=== PATIENT | male | born 1995 | race Caucasian/White ===

== ENCOUNTER 2024-06-02 23:53 | Emergency (ER) | payer BC, SELFPAY ==
[2024-06-03 00:37] VITALS: BP 110/54; PULSE 104; RESP 16; TEMP 37.4; O2SAT 97; BMI 40.4
--- NOTE | 2024-06-03 00:52 | ED_ITS ---
HPI - General Adult General Chief complaint: Nausea/Vomiting Stated complaint: Vomiting, fainting, diarrhea Time Seen by Provider: 06/03/24 00:35 Source: patient and family Mode of arrival: ambulatory Limitations: no limitations History of Present Illness HPI narrative: 28-year-old male presents the emergency department for evaluation of fainting after a bout of vomiting and diarrhea. Lasted only few seconds, was fully alert within 30 seconds. No seizure-like activity. Has been drinking fluids normally since. This was approximately 2 hours prior to arrival which is about 3 hours prior to examination. No chest pain, no shortness of breath, no neurological changes, no seizures. No recreational pharmaceuticals or intoxications that would have contributed. Daughter had stomach flu like symptoms a couple of days prior to patient. Family mainly concerned about the fainting spell. Patient feeling mildly lightheaded but otherwise well. No severe abdominal pain, no other systemic symptoms. No prior syncope, cardiac complication or arrhythmia history. No family history of premature coronary artery disease or arrhythmia. No long-term medications, no prior GI surgeries. No allergies. Nonsmoker, no drugs. ROS notable for the GI, generalized and cardiovascular symptoms as above, otherwise denies times 12 systems. Related Data Home Medications ?Medication ?Instructions ?Recorded ?Confirmed No Known Home Medications 06/03/24 06/03/24 Allergies Allergy/AdvReac Type Severity Reaction Status Date / Time No Known Drug Allergies Allergy Verified 06/03/24 00:39 Exam Const: Vital Signs, click to edit/add: Vital Signs - 24 hr 06/03/24 00:37 Temperature 99.3 F Pulse Rate [Pulse Oximeter] 104 H Respiratory Rate 16 Blood Pressure [Le ft Upper Arm] 110/54 L Pulse Oximetry 97 Oxygen Delivery Me thod Room Air Documenting provider has reviewed patient's vital signs: yes Common normals: no apparent distress and alert General appearance: cooperative, comfortable and well kempt HENMT: Common normals: normocephalic Head and scalp: normocephalic Mouth: oral and palatal mucosa normal Throat: posterior oropharynx normal Eye: Common normals: conjunctivae normal General eye: normal appearance of both eyes Conjunctiva: conjunctiva(e) normal Neck & C-Spine: Common normals: full ROM and no lymphadenopathy Resp: Common normals: normal respiratory effort, no use of accessory muscles and clear to auscultation bilaterally Effort & inspection: able to speak in complete sentences Auscultation: clear to auscultation bilaterally Cardio: Common normals: regular rate, regular rhythm, S1 normal heart sound, S2 normal heart sound and no murmurs Rate: regular rate Rhythm: regular rhythm Heart sounds: S1 normal and S2 normal GI: Common normals: Normal to inspection, nondistended, normoactive bowel sounds present, soft to palpation, non-tender, no hepatosplenomegaly and no mas ses Palpation: soft and no hepatosplenomegaly Extremity: Common normals: normal to inspection, normal capillary refill and no pedal edema Neuro: Sensorium/orientation: alert Speech: speech normal Motor exam: strength 5/5 throughout and no movement abnormalities noted Psych: Appearance: well kempt Attitude: engaged Activity/motor behavior: appropriate eye contact Insight: insight good Judgement: judgment good Skin: Common normals: no rashes or lesions noted General skin exam: no rashes or lesions noted Course Course ED Course: With syncopal episode with vomiting and diarrhea in the setting of what is likely underlying gastroenteritis. Most likely this was a vagal episode, cannot exclude underlying coronary artery disease, arrhythmia, dehydration, electrolyte abnormality, next others. Patient is taking p.o. fluids well, no significant signs of hypotension, tachycardia or other abnormality. Abdominal exam is benign. Will give Zofran and Imodium, EKG. If EKG is reassuring, most likely this was a vasovagal event. Family counseled on pushing fluids, use over-the- counter Imodium, prescription for Zofran will be provided. Await EKG. Reevaluation(s) Reevaluation #1: EKG normal. Family counseled. Recommend we continue with the above plan for Zofran and Imodium p.r.n.. Continue to push fluids. Unfortunately these episodes can be common and are typically associated with the rapid fluid shifts that come with sudden vomiting and diarrhea. If symptoms persist, follow-up with primary care to schedule Holter monitor and echo. Vital Signs Vital signs: Initial Vital Signs Temperature 99.3 F 06/03/24 00:37 Temperature Source Temporal Artery Scan 06/03/24 00:37 Pulse Rate 104 H 06/03/24 00:37 Respiratory Rate 16 06/03/24 00:37 Blood Pressure 110/54 L 06/03/24 00:37 Blood Pressure Mean 72 06/03/24 00:37 Blood Pressure Position Sitting 06/03/24 00:37 Pulse Oximetry 97 06/03/24 00:37 Oxygen Delivery Method Room Air 06/03/24 00:37 Vital Signs Temperature 99.3 F 06/03/24 00:37 Pulse Rate 104 H 06/03/24 00:37 Respiratory Rate 16 06/03/24 00:37 Blood Pressure 110/54 L 06/03/24 00:37 Pulse Oximetry 97 06/03/24 00:37 Oxygen Delivery Method Room Air 06/03/24 00:37 Temperature 99.3 F 06/03/24 00:37 Pulse Rate 104 H 06/03/24 00:37 Respiratory Rate 16 06/03/24 00:37 Blood Pressure 110/54 L 06/03/24 00:37 Pulse Oximetry 97 06/03/24 00:37 Oxygen Delivery Method Room Air 06/03/24 00:37 Medications Administered Medications: Discontinued Medications Generic Name Dose Route Start Last Admin Trade Name Freq PRN Reason Stop Dose Admin Loperamide HCl 2 mg 06/03/24 00:52 06/03/24 01:01 Loperamide Hcl 2 Mg Capsule PO 06/03/24 00:53 2 mg ONCE ONE Administration Ondansetron HCl 4 mg 06/03/24 00:52 06/03/24 01:02 Ondansetron Odt 4 Mg Tab PO 06/03/24 00:53 4 mg ONCE ONE Administration Medical Decision Making ECG Data Attestation: I personally reviewed and interpreted this ECG as follows: Prior ECG tracings: not available for review Interpretation: Normal sinus rhythm, rate of 98. Normal intervals and axis. No significant ST or T-wave abnormalities. Good R-wave progression. Normal EKG. Discharge Plan Discharge Clinical Impression: Vasovagal syncope, Gastroenteritis Patient Disposition: Home w/ Parent or Adult Condition: Stable Instructions: Gastroenteritis (ED) Additional Instructions: As discussed, your EKG looks great. Unfortunately, these episodes can be common when you have vomiting and diarrhea. You have no signs of underlying structural or electrical heart problems. Continue to push fluids. I have given her prescription for Zofran, also known as ondansetron which is a prescription anti nausea medication. I would automatically take another dose at about 7 or 8:00 a.m., then after that every 6-8 hours as needed. Slowly advance your diet as you are feeling better, emphasizing salty foods. If you continue to have these episodes, I would recommend that you follow-up with your primary care provider to have a Holter monitor and echo scheduled. But based solely on this episode, I would not recommend it. Home to rest today, then resume typical activities once you are feeling better. Activity Level: Activity as Tolerated Discharge Diet: Regular Prescriptions: No Action No Known Home Medications Follow Up/Referrals: Kartik Henriquez MD [Referring] - Stand Alone Forms: [employer] Info Instructions
[2024-06-03] MEDS: LOPERAMIDE HCL 2 MG CAPSULE PO (01:01)
[2024-06-03] MEDS: ONDANSETRON ODT 4 MG TAB PO (01:02)
== END 2024-06-03 01:30 | disposition home or self-care (01) ==
LOC: ED 06-03 01:11
PROVIDERS: Emergency Provider Family Medicine
DX: R55 Syncope and collapse (principal); K52.9 Noninfective gastroenteritis and colitis, unspecified
CPT/HCPCS: 93005; 99283; 99284; A9270

== ENCOUNTER 2025-05-14 09:23 | Emergency (ER) | payer OTHER, BC, SELFPAY ==
[2025-05-14 09:55] VITALS: BP 142/82; PULSE 81; RESP 18; TEMP 36.7; O2SAT 96; BMI 40.9
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
[2025-05-14 12:22] VITALS: BP 138/83; PULSE 70; RESP 16; O2SAT 97
== END 2025-05-14 12:23 | disposition home or self-care (01) ==
PROVIDERS: Emergency Provider Emergency Medicine
DX: M54.2 Cervicalgia (principal); V53.5XXA Driver of pick-up truck or van injured in collision with car, pick-up truck or van in traffic accident, initial encounter
CPT/HCPCS: 72125; 99282; 99283; 99284